=== PATIENT | male | born 1950 ===

== ENCOUNTER 2024-03-21 08:30 | Inpatient (IN) | payer OTHER ==
[~2024-03-21] VITALS: Ht 182.9 cm; Wt 117.9 kg
[2024-03-21 10:35] LABS: URINE APPEARANCE Clear; URINE BILIRRUBIN Negative (NEGATIVE); URINE BLOOD Negative; URINE COLOR Yellow; URINE LEUKOCYTE Trace; URINE NITRATE Positive; URINE PROTEIN Negative (NEGATIVE); URINE UROBILINOGEN 0.2 E.U./dl
[2024-03-21 10:39] LABS: URINE EPITHELIAL CELLS 9.1 uL (0.0-38.8); URINE RBC 18.3 uL (0.0-20.8); URINE WBC 127.5 uL (0.0-23.2)
[2024-03-21 10:43] LABS: HEMATOCRIT 46.1 % (39.0-48.0); HEMOGLOBIN 15.3 g/dL (13-16.00); MEAN CELL VOLUME 82.4 fL (80.0-100.00); MEAN CORPUSCULAR HEMOGLOBIN 27.2 pg (27.00-32.0); PLATELET COUNT 139 K/uL (150-450); RED CELL DISTRIBUTION WIDTH 15.8 % (11.5-14.5)
[2024-03-21] MEDS ORDERED: HYDRALAZINE HC100 MG (10:44)
[2024-03-21] MEDS ORDERED: TENORMIN100 M1 (10:44)
[2024-03-21] MEDS ORDERED: LOZARTAN (10:45)
[2024-03-21] MEDS ORDERED: FARXIGA10 MG (10:45)
[2024-03-21] MEDS ORDERED: GLIPIZIDE XL10 MG (10:45)
[2024-03-21] MEDS ORDERED: TANSULOSIN (10:46)
[2024-03-21] MEDS ORDERED: TRADJENTA5 MG (10:46)
[2024-03-21] MEDS ORDERED: SYNTHROID200 MCG (10:46)
[2024-03-21 10:47] LABS: INR 1.07; PARTIAL THROMBOPLASTIN TIME 32.1 SECONDS (22.0-34.0); PROTHROMBIN TIME 11.2 SECONDS (9.0-11.5)
[2024-03-21] MEDS ORDERED: EZETIMIBE (10:47)
[2024-03-21 10:52] LABS: URINE BACTERIA > 9821.5 uL (0.0-1933); URINE GLUCOSE >=1000 MG/DL (NEGATIVE)
[2024-03-21 10:55] LABS: CALCIUM 9.6 mg/dL (8.5-10.1); CREATININE SERUM 1.66 mg/dL (0.70-1.30); GFR 41.04; POTASSIUM 4.78 mEq/L (3.5-5.1)
[2024-03-28] MEDS ORDERED: CIPROFLOXACIN IN 5 % DEXTROSE 400 MG/200 ML PIGGYBAG IV SCH (06:00)
[2024-03-28] MEDS ORDERED: GENTAMICIN SULFATE 40 MG/ML VIAL IV SCH ×2 (06:00→17:00)
[2024-03-28] MEDS ORDERED: GENTAMICIN SULFATE 40 MG/ML VIAL ONE ×3 (13:05→18:05)
[2024-03-28] MEDS ORDERED: CIPROFLOXACIN IN 5 % DEXTROSE 400 MG/200 ML PIGGYBAG IV ONE (13:05)
[2024-03-28] MEDS ORDERED: ENOXAPARIN SODIUM 40 MG/0.4 ML SYRINGE SUBCUTANEO ONE (13:06)
[2024-03-28] MEDS ORDERED: HEMOSTATIC MATRIX 1 KIT KIT TOP ONE (13:10)
[2024-03-28] MEDS ORDERED: LIDOCAINE HCL 1% 20ML VIAL IJ ONE (13:10)
[2024-03-28] MEDS ORDERED: EZETIMIBE-SIMV1 EAC3 (13:24)
[2024-03-28] MEDS ORDERED: LOSARTAN POTAS100 MG (13:24)
[2024-03-28] MEDS ORDERED: TAMSULOSIN HCL0.4 MG (13:25)
[2024-03-28] MEDS ORDERED: SURGIFLO APPLICATOR 1 EACH APPL TOP ONE (14:27)
[2024-03-28] MEDS ORDERED: DEXTROSE 50 % IN WATER 0.5 G/ML VIAL IV PRN ×2 (14:45→17:00)
[2024-03-28] MEDS ORDERED: INSULIN LISPRO 1,000 UNIT/10 ML UNITS SUBCUTANEO PRN ×2 (14:45→17:00)
[2024-03-28] MEDS ORDERED: ONDANSETRON HCL 2 MG/ML VIAL IV PRN (16:45)
[2024-03-28] MEDS ORDERED: OxyCODONE HCL/APAP UD (PERCOCET) PO PRN (16:45)
[2024-03-28] MEDS ORDERED: RINGERS SOLUTION,LACTATED 1,000 ML IV SCH (16:45)
[2024-03-28] MEDS ORDERED: GABAPENTIN 300 MG CAPSULE PO SCH (17:00)
[2024-03-28] MEDS ORDERED: POLYETHYLENE GLYCOL 3350 17 GM BLIST.PACK PO SCH (17:00)
[2024-03-28] MEDS ORDERED: KETOROLAC TROMETHAMINE 30 MG VIAL IV SCH (17:00)
[2024-03-28] MEDS ORDERED: KETOROLAC TROMETHAMINE 30 MG VIAL ONE (18:06)
[2024-03-28] MEDS ORDERED: FAMOTIDINE/PF 20 MG/2 ML VIAL IV SCH (21:00)
[2024-03-28] MEDS ORDERED: FAMOTIDINE/PF 20 MG/2 ML VIAL ONE (21:09)
[2024-03-29] MEDS ORDERED: LEVOTHYROXINE SODIUM 200 MCG TABLET PO ONE (03:35)
[2024-03-29] MEDS ORDERED: LEVOTHYROXINE SODIUM 200 MCG TABLET PO SCH (06:00)
[2024-03-29 08:05] LABS: HEMATOCRIT 40.1 % (39.0-48.0); MEAN CORPUSCULAR HEMOGLOBIN 26.9 pg (27.00-32.0); MEAN CORPUSCULAR HGB CONC 32.4 g/dl (32.0-36.0); PLATELET COUNT 166 K/uL (150-450); RED BLOOD COUNT 4.84 M/uL (4.00-6.00); RED CELL DISTRIBUTION WIDTH 15.7 % (11.5-14.5)
[2024-03-29 08:36] LABS: ALBUMIN 2.8 gm/dL (3.4-5.0); CALCIUM 8.1 mg/dL (8.5-10.1); CREATININE SERUM 2.24 mg/dL (0.70-1.30); GFR 29.04; PHOSPHOROUS 3.9 mg/dL (2.5-4.9); POTASSIUM 5.34 mEq/L (3.5-5.1)
[2024-03-29] MEDS ORDERED: ATENOLOL 100 MG TABLET PO SCH (09:00)
[2024-03-29] MEDS ORDERED: LOSARTAN POTASSIUM 100 MG TABLET PO SCH ×2 (09:00→17:00)
[2024-03-29] MEDS ORDERED: ENOXAPARIN SODIUM 40 MG/0.4 ML SYRINGE SUBCUTANEO SCH (09:00)
[2024-03-29] MEDS ORDERED: hydrALAZINE HCL 50 MG TABLET PO SCH (09:00)
[2024-03-29] MEDS ORDERED: 0.9 % SODIUM CHLORIDE 1,000 ML IV SCH (12:00)
[2024-03-29 14:48] LABS: HEMATOCRIT 39.2 % (39.0-48.0); HEMOGLOBIN 12.9 g/dL (13-16.00); MEAN CELL VOLUME 81.5 fL (80.0-100.00); MEAN CORPUSCULAR HEMOGLOBIN 26.9 pg (27.00-32.0); PLATELET COUNT 155 K/uL (150-450); RED BLOOD COUNT 4.81 M/uL (4.00-6.00); RED CELL DISTRIBUTION WIDTH 15.8 % (11.5-14.5)
[2024-03-30 08:40] LABS: HEMATOCRIT 40.4 % (39.0-48.0); HEMOGLOBIN 13.4 g/dL (13-16.00); MEAN CELL VOLUME 83.3 fL (80.0-100.00); MEAN CORPUSCULAR HEMOGLOBIN 27.6 pg (27.00-32.0); MEAN CORPUSCULAR HGB CONC 33.1 g/dl (32.0-36.0); PLATELET COUNT 168 K/uL (150-450); RED BLOOD COUNT 4.85 M/uL (4.00-6.00); RED CELL DISTRIBUTION WIDTH 15.5 % (11.5-14.5)
[2024-03-30 09:00] LABS: CALCIUM 7.9 mg/dL (8.5-10.1); CREATININE SERUM 1.46 mg/dL (0.70-1.30); GFR 47.59; POTASSIUM 5.08 mEq/L (3.5-5.1)
[2024-03-30] MEDS ORDERED: MECLIZINE HCL 25 MG TABLET PO STA (16:57)
== END 2024-03-31 12:09 | disposition home or self-care (01) | DRG 708 ==
LOC: SURH 03-28 08:30 → O/R 03-28 09:52 → SURH 03-28 13:15
PROVIDERS: ADMIT Urology; ATTEND Urology
PROC: 8E0W4CZ Robotic Assisted Procedure of Trunk Region, Percutaneous Endoscopic Approach (ICD-10-PCS; 2024-03-28)
PROC: 0VT04ZZ Resection of Prostate, Percutaneous Endoscopic Approach (ICD-10-PCS; principal; 2024-03-28 13:15)
DX: C61 Malignant neoplasm of prostate (principal); N40.1 Benign prostatic hyperplasia with lower urinary tract symptoms; I10 Essential (primary) hypertension; E11.9 Type 2 diabetes mellitus without complications; E03.9 Hypothyroidism, unspecified; F17.200 Nicotine dependence, unspecified, uncomplicated; Z79.84 Long term (current) use of oral hypoglycemic drugs
CPT/HCPCS: 55867; S2900